=== PATIENT | female | born 1965 | race Caucasian/White ===

== ENCOUNTER 2016-08-17 05:29 | Emergency (ER) | payer BC ==
--- NOTE | ~2016-08-17 | US85 ---
[facility] A Service of [facility] RADIOLOGY TEXT RESULTS PATIENT: CINTIA WILD LOCATION: [facility] : 63 UNIT #: [id number] AGE: [address]: Waldo Gale MD SEX: F ORDER DR: [id number] [facility] [address] [place], [place] [address] [id number] E MR#: [id number] Acc #: [id number] NAME: CINTIA WILD : 1965 SEX: F STUDY DATE/TIME: 08/17/2016 8:01 UNIT: [facility] ROOM: STUDY DESCRIPTION: [facility] [employer] Attending Physician: Manpreet Gale M.D. Ordering Physician: Waldo Payne M.D. Primary Care Physician: Amanda Youngblood M.D. MEDICAL IMAGING REPORT This report is preliminary unless electronic signature is present EXAM Right leg vein Doppler, 08/17. INDICATION Leg pain that started Sunday of this week after a long car ride. TECHNIQUE Venous ultrasound examination of the right lower extremity was performed using grayscale, spectral Doppler and color flow Doppler imaging. FINDINGS The examination is negative. There is no evidence of right lower extremity deep venous thrombus from the groin to the lower calf. Visualized greater saphenous vein is also patent. IMPRESSION Negative examination. No evidence of right lower extremity deep venous thrombosis. Dictated by... Tho River Jr., M.D. THIS IS AN ELECTRONICALLY VERIFIED REPORT Tho River Jr., M.D. at 08/17/2016 5:10 PM LUIS/severo TD: 08/17/2016 09:56 JOB #: [id number] MEDICAL IMAGING REPORT Page 1 of 1 COPY
[~2016-08-17 05:29] MED LIST: ACETAMINOPHEN PO; ASPIRIN; ATIVAN PO; BIOTIN PO; FLEXERIL PO; HUMALOG100 U/ML SUBQ; KEFLEX PO; KOMBIGLYZE XR1 EAC1 PO; LEVEMIR; LISINOPRIL-HCTZ1 T16 PO; LOC PO; METFORMIN PO; PERCOCET5/325 PO; PHENERGAN PO; PRILOSEC PO; PRISTIQ100 MG PO; PRISTIQ50 MG PO; SIMVASTATIN40 MG PO; VICODIN 5/500 T1 TAB PO; ZESTORETIC 20/11 TAB; [UNRECOGNIZED DRUG - REMARK]
== END 2016-08-17 09:39 | disposition home or self-care (01) ==
LOC: CED 05:29
DX: M54.17 Radiculopathy, lumbosacral region (principal); I10 Essential (primary) hypertension; E11.9 Type 2 diabetes mellitus without complications; Z88.5 Allergy status to narcotic agent
CPT/HCPCS: 93971; 99284